=== PATIENT | male | born 1980 | race Caucasian/White ===

== ENCOUNTER → 2016-09-29 | Outpatient (CLI) | payer BC ==
[~2016-09-29] MED LIST: BP MEDS; LOSA100T7 PO; LOSA25TA5 PO; MILN50TA6 PO; PANT40TA PO
== END ==
LOC: CARD 07:44
PROVIDERS: ATTEND Internal Medicine
DX: R07.89 Other chest pain (principal); R06.09 Other forms of dyspnea; I10 Essential (primary) hypertension
CPT/HCPCS: 93017

== ENCOUNTER 2017-11-09 18:48 | Emergency (ER) | payer BC ==
[~2017-11-09] VITALS: Ht 185.4 cm; Wt 108.9 kg
--- OUTSIDE RECORDS SUMMARY | 2017-11-09 18:53 | XMS REPORT | Continuity of Care Document ---
Author Author [facility] Organization [facility] Address Unknown Phone Unavailable Support Name Relationship Address Phone XIOMARA HERNANDEZ Next Of Kin [address] [place] [address] Insurance Providers Payer Name Policy Number Subscriber Name Relationship [facility] [id number] Bryce Hernandez N 01 Self / Same As Patient Advance Directives Directive Response Recorded Date Advance Directives N 04/25/12 3:15pm Problems No Known Problems or Medical conditions. Allergies, Adverse Reactions, Alerts Allergen Type Severity Reaction Last Updated No Known Drug Allergies 10/08/09 Medications Medication Dose Units Route Sig Qty Days Losartan Potassium 25 Mg PO [Bp Meds] Immunizations Name Given Type Date of Pneumonia Vaccine 04/25/08 H Date of Influenza Vaccine 01/24/12 H Response Recorded Date/Time Status not known Unknown Results No Known Relevant Diagnostic Tests, Laboratory Data and/or Discharge Summary. Procedures Procedure Code Date UPPER GI ENDOSCOPY BIOPSY 48387 03/09/08 Encounters Encounter Location Date/Time Departed Emergency Room [facility] 07/02 8:39pm
--- OUTSIDE RECORDS SUMMARY | 2017-11-09 18:53 | XMS REPORT | Continuity of Care Document ---
Author Author [facility] Organization [facility] Address Unknown Phone Unavailable Support Name Relationship Address Phone XIOMARA HERNANDEZ Next Of Kin [address] [place], [place] [id number] Insurance Providers Payer Name Policy Number Subscriber Name Relationship [facility] [id number] Bryce Hernandez 01 Self / Same As Patient Advance Directives Directive Response Recorded Date Advance Directives Y 01/27/13 7:58am Health Care Power of Biodiesel Processing Technician Y 01/27/13 7:58am Organ Donor N 01/27/13 7:58am Problems No Known Problems or Medical conditions. Allergies, Adverse Reactions, Alerts Allergen Type Severity Reaction Last Updated amoxicillin trihydrate Allergy 01/27/13 potassium clavulanate Allergy 01/27/13 Medications Medication Dose Units Route Sig Qty Days Pantoprazole Sodium 40 Mg PO Losartan Potassium 100 Mg PO DAILY Milnacipran Hcl (Savella) 50 Mg PO DAILY Losartan Potassium 25 Mg PO [Bp Meds] Immunizations Name Given Type Date of Pneumonia Vaccine 04/25/08 H Date of Influenza Vaccine 01/26/13 H Response Recorded Date/Time Status not known Unknown Results No Known Relevant Diagnostic Tests, Laboratory Data and/or Discharge Summary. Procedures Procedure Code Date UPPER GI ENDOSCOPY BIOPSY 63508 03/09/08 UPPER GI ENDOSCOPY BIOPSY 12851 01/27/13 Encounters Encounter Location Date/Time Departed Emergency Room [facility] 07/02 8:39pm
--- OUTSIDE RECORDS SUMMARY | 2017-11-09 18:53 | XMS REPORT | Encounter Summary ---
Author Author [facility] Organization [facility] Address Unknown Phone Unavailable Care Team Providers Care Telesales Agent Name Role Phone Geoffrey Beltran MD Unavailable Gab Wilde MD PCP Reason for Referral * Consult, Test & Treat Status Reason Specialty Diagnoses / Referred By Referred To Procedures Contact Contact No Auth Needed Specialty Gastroenterology Diagnoses [facility] Esophagus MD [facility] Required disorder [address] [place] [phone] Phone: Reason for Visit * Reason Comments Chronic Kidney Disease Encounter Details Date Type Department Care Team Description 10/25/2017 Office Visit [facility] Geoffrey Beltran MD Stage 3 chronic kidney Physicians - Internal [address] disease (HCC) (Primary Medicine [address] Dx); [place] [address] Esophagus disorder [address] [phone] [place] [address] Social History Tobacco Use Types Packs/Day Years Used Date Never Smoker Smokeless Tobacco: Never Used Alcohol Use Drinks/Week oz/Week Comments Yes 0 Standard 0.0 drinks or equivalent Sex Assigned at Date Recorded Not on file as of this encounter Last Filed Vital Signs Vital Sign Reading Time Taken Blood Pressure 126/82 10/25/2017 12:40 PM CDT Pulse 98 10/25/2017 12:35 PM CDT Temperature - - Respiratory Rate - - Oxygen Saturation - - Inhaled Oxygen - - Concentration Weight 111.6 kg (246 lb) 10/25/2017 12:35 PM CDT Height 185.4 cm (6' 1") 10/25/2017 12:35 PM CDT Body Mass Index 32.46 10/25/2017 12:35 PM CDT in this encounter Instructions * Patient Instructions - Geoffrey Beltran MD - 10/25/2017 12:45 PM CDT Cut losartan to 50 mg daily. Measure BP at different times during the day. Especially check it at times you feel poorly. in this encounter Plan of Treatment Name Priority Associated Diagnoses Order Schedule BASIC METABOLIC PANEL Routine Stage 3 chronic kidney Every 2 Weeks for 16 disease (HCC) Occurrences starting 10/25/2017 until 10/25/2018 PROTEIN/CR RATIO,UR RAN Routine Stage 3 chronic kidney Every 2 Weeks for 16 disease (HCC) Occurrences starting 10/25/2017 until 10/25/2018 Name Priority Associated Diagnoses Order Schedule AMB REFERRAL TO GASTROENTEROLOGY Routine Esophagus disorder Ordered: 12/2017 as of this encounter Results * PROTEIN/CR RATIO,UR RAN (10/25/2017 3:12 PM) Component Value Ref Range Protein, Random 130 MG/DL Creatinine, Random 191 MG/DL Protein/CR ratio 0.7 Specimen Performing Laboratory [facility] [address] [place] [address] * POC URINE DIPSTICK AUTO READ (10/25/2017) Component Value Ref Range Urine Glucose POC norm Urine Bilirubin POC neg Urine Ketone POC neg Urine Specific [place] 1.010 POC Urine Blood POC neg Urine PH POC 6 Urine Protein POC 100 Urine Urobilinogen POC norm Urine Nitrite POC neg Urine Leukocytes POC neg Color,UA Turbidity,UA Specimen Performing Laboratory Urine IN CLINIC in this encounter Visit Diagnoses Diagnosis Stage 3 chronic kidney disease (HCC) - Primary Esophagus disorder Unspecified disorder of esophagus
--- OUTSIDE RECORDS SUMMARY | 2017-11-09 18:53 | XMS REPORT | Encounter Summary ---
Author Author [facility] Organization [facility] Address Unknown Phone Unavailable Care Team Providers Care Junior Architect Name Role Phone Geoffrey Beltran MD Unavailable Gab Wilde MD PCP Encounter Details Date Type Department Care Team Description 10/08/2017 Orders Only [facility] Jim Cook APRN-BC FSGS (focal segmental Physicians - Internal [address] glomerulosclerosis) Medicine [address] (Primary Dx) [place] [address] [address] [phone] [place] [address] Social History Tobacco Use Types Packs/Day Years Used Date Never Smoker Alcohol Use Drinks/Week oz/Week Comments Yes 0 Standard 0.0 drinks or equivalent Sex Assigned at Date Recorded Not on file as of this encounter Plan of Treatment Name Priority Associated Diagnoses Order Schedule COMPREHENSIVE METABOLIC PANEL Routine FSGS (focal segmental Expected: glomerulosclerosis) (Approximate), Expires: 10/08/2018 PHOSPHORUS Routine FSGS (focal segmental Expected: 10/08/2017 glomerulosclerosis) (Approximate), Expires: 10/08/2018 URIC ACID Routine FSGS (focal segmental Expected: 10/08/2017 glomerulosclerosis) (Approximate), Expires: 10/08/2018 CREATININE-URINE RANDOM Routine FSGS (focal segmental Expected: 2017 glomerulosclerosis) (Approximate), Expires: 10/08/2018 PROTEIN/CR RATIO,UR RAN Routine FSGS (focal segmental Expected: 2017 glomerulosclerosis) (Approximate), Expires: 10/08/2018 TOTAL PROTEIN-URINE RANDOM Routine FSGS (focal segmental Expected: 10/08 glomerulosclerosis) (Approximate), Expires: 10/08/2018 as of this encounter Visit Diagnoses Diagnosis 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
--- OUTSIDE RECORDS SUMMARY | 2017-11-09 18:53 | XMS REPORT | Clinical Summary ---
Author Author [facility] Organization [facility] Address Unknown Phone Unavailable Care Team Providers Care Lead Cargo Mover Name Role Phone Geoffrey Beltran MD Unavailable Gab Wilde MD PCP Source Comments Some departments are not documenting in the electronic medical record. If you do not see the information that you expected, contact Release of Information in the Health Information Management department at [phone] for further assistance in locating additional records.[facility] Allergies Active Allergy Reactions Severity Noted Date Comments Amoxicillin-Pot NAUSEA AND VOMITING 05/15/2013 Clavulanate Current Medications Prescription Sig. Disp. Refills Start End Date Status Date acetaminophen (TYLENOL) Take 500 mg by mouth as Active 500 mg tablet Needed for Pain. losartan (COZAAR) 50 mg Take 1 tablet by mouth 90 tablet 4 06/04/19 Active tablet daily. 18 losartan (COZAAR) 25 mg Take 1 tablet by mouth 30 tablet 1 10/09/19 Active tablet daily. [address] Take 40 mg by mouth 10/26/19 Discontin (PROTONIX) 40 mg tablet daily. 18 ued mirabegron(+) ER Take 1 tablet by mouth 30 tablet 2 02/12/20 Discontin (MYRBETRIQ) 25 mg tablet daily. 17 18 ued Active Problems Problem Noted Date Urgency of urination 07/07/2016 Overview: 07/07/16: One year history of urinary urgency, frequency, nocturia 1-5x/night. 02/11/17: uroxatral no help. Still having same symptoms L ast Assessment & Plan: Mr. Hernandez is a 36 year old gentleman with urinary urgency, frequency, and rare urge urinary incontinence here for follow up. Unfortunately he saw no benefit from uroxatral and is still having bothersome symptoms. Plan: - We had a long discussion with him and it does not seem like he is drinking an inappropriate amount of fluids although he was counseled that he can slightly decrease the amount of pricilla aid he drinks (one full pitcher) each night. - We will discontinue uroxatral and start mirabegron 25 mg daily - The patient was counseled to check his blood pressure to make sure he does not get hypertensive with mirabegron - Mr. Hernandez will keep a voiding diary and follow up with us in 1 month - If his symptoms have not improved, we will consider cystoscopy and a potassium stimulation test. Encounters Date Type Specialty Care Team Description 10/25/2017 Hospital Lab Geoffrey Beltran MD Chronic kidney disease, Encounter stage 3 (moderate) (HCC) 10/25/2017 Office Visit Nephrology Geoffrey Beltran MD Stage 3 chronic kidney disease (HCC) (Primary Dx); Esophagus disorder 10/08/2017 Orders Only Nephrology Jim Cook APRN-NATANAEL FSGS ( focal segmental glomerulosclerosis) (Primary Dx) from Last 3 Months Family History Medical History Relation Name Comments Brain Tumor Other Heart Disease Other Relation Name Status Comments Other Social History Tobacco Use Types Packs/Day Years Used Date Never Smoker Smokeless Tobacco: Never Used Alcohol Use Drinks/Week oz/Week Comments Yes 0 Standard 0.0 drinks or equivalent Sex Assigned at Date Recorded Not on file Last Filed Vital Signs Vital Sign Reading Time Taken Blood Pressure 126/82 10/25/2017 12:40 PM CDT Pulse 98 10/25/2017 12:35 PM CDT Temperature 36.4 C (97.6 F) 10/05/2016 2:16 PM CDT Respiratory Rate 18 10/02/2013 2:08 PM CDT Oxygen Saturation - - Inhaled Oxygen - - Concentration Weight 111.6 kg (246 lb) 10/25/2017 12:35 PM CDT Height 185.4 cm (6' 1") 10/25/2017 12:35 PM CDT Body Mass Index 32.46 10/25/2017 12:35 PM CDT Plan of Treatment Health Maintenance Due Date Last Done Comments PHYSICAL (COMPREHENSIVE) 1985 EXAM PERTUSSIS VACCINE 1989 HIV SCREENING 1993 TETANUS VACCINE 1995 INFLUENZA VACCINE 01/17/2018 01/27/2001 Results * PROTEIN/CR RATIO,UR RAN (10/25/2017 3:12 PM) Component Value Ref Range Protein, Random 130 MG/DL Creatinine, Random 191 MG/DL Protein/CR ratio 0.7 Specimen Performing Laboratory U[facility] [address] [place] [address] * POC URINE DIPSTICK AUTO READ (10/25/2017) Component Value Ref Range Urine Glucose POC norm Urine Bilirubin POC neg Urine Ketone POC neg Urine Specific [place] 1.010 POC Urine Blood POC neg Urine PH POC 6 Urine Protein POC 100 Urine Urobilinogen POC norm Urine Nitrite POC neg Urine Leukocytes POC neg Color,UA Turbidity,UA Specimen Performing Laboratory Urine IN CLINIC from Last 3 Months
--- OUTSIDE RECORDS SUMMARY | 2017-11-09 18:53 | XMS REPORT | Encounter Summary ---
Author Author [facility] Organization [facility] Address Unknown Phone Unavailable Care Team Providers Care Camera Machinist Name Role Phone Geoffrey Beltran MD Unavailable Gab Wilde MD PCP Encounter Details Date Type Department Care Team Description 10/25/2017 [facility] Geoffrey Beltran MD Chronic kidney disease, Encounter [facility] [address]st fl [address] stage 3 (moderate) ( HCC) [address] [place] [address] [place], [place] [id number] Social History Tobacco Use Types Packs/Day Years Used Date Never Smoker Smokeless Tobacco: Never Used Alcohol Use Drinks/Week oz/Week Comments Yes 0 Standard 0.0 drinks or equivalent Sex Assigned at Date Recorded Not on file as of this encounter Medications at Time of Discharge Medication Sig. Disp. Refills Start Date End Date acetaminophen (TYLENOL) Take 500 mg by mouth as 500 mg tablet Needed for Pain. losartan (COZAAR) 25 mg Take 1 tablet by mouth 30 tablet 1 10/08/2017 tablet daily. losartan (COZAAR) 50 mg Take 1 tablet by mouth 90 tablet 4 06/04/2017 tablet daily. as of this encounter Plan of Treatment Not on fileas of this encounter Results * PROTEIN/CR RATIO,UR RAN (10/25/2017 3:12 PM) Component Value Ref Range Protein, Random 130 MG/DL Creatinine, Random 191 MG/DL Protein/CR ratio 0.7 Specimen Performing Laboratory Urine [facility] [address] [place] [address] in this encounter Visit Diagnoses Diagnosis Stage 3 chronic kidney disease (HCC) Admitting Diagnoses Diagnosis Chronic kidney disease, stage 3 (moderate) (HCC) Chronic kidney disease, stage 3 (moderate)
[2017-11-09] MEDS ORDERED: GLUCAGON EMERGENCY 1 MG/KIT IV ONE (19:00)
--- NOTE | 2017-11-09 19:06 | ED Abdominal Pain ---
General Stated Complaint: FOOD STUCK IN THROAT Source of Information: Patient, Family Exam Limitations: No Limitations History of Present Illness Date Seen by Provider: Nov 09, 2017 Time Seen by Provider: 19:02 Initial Comments Patient is a 37-year-old male who presents to the emergency room with complaints of having a piece of sausage stuck in his throat. He reports that 45 minutes prior to arrival or eating dinner when the food became stuck, he's had this happen to him twice before, once he had to go to endo and the other time glucagon was able to let it go down He denies pain, nausea, vomiting. He does report that he is unable to swallow his saliva. Timing/Duration: 1 Hour Severity/Quality: Mild Associated Symptoms: Denies Symptoms Allergies and Home Medications Allergies Coded Allergies: amoxicillin trihydrate (Unverified Allergy, 01/27/13) potassium clavulanate (Unverified Allergy, 01/27/13) Home Medications Famotidine 20 Mg Tablet, 20 MG PO BID, (Reported) Losartan Potassium 100 Mg Tablet, 100 MG PO DAILY, (Reported) Milnacipran Hcl 50 Mg Tablet, 50 MG PO DAILY, (Reported) Patient Home Medication List Home Medication List Reviewed: Yes Review of Systems Constitutional: see HPI; No chills, No diaphoresis EENTM: No Mouth Pain, No Mouth Swelling, No Throat Pain, No Throat Swelling; Other (food bolus stuck in throat.) Respiratory: See HPI; Denies Shortness of Air, Denies SOA With Exertion, Denies Wheezing All Other Systems Reviewed Negative Unless Noted: Yes Past Tjmxxwa-Aqlwcu-Xwzlnd Hx Past Med/Social Hx: Reviewed Nursing Past Med/Soc Hx Patient Social History Recent Foreign Travel: No Contact w/Someone Who Travel: No Immunizations Up To Date Date of Pneumonia Vaccine: Apr 25, 2008 Date of Influenza Vaccine: Jan 26, 2013 Family Medical History Reviewed Nursing Family Hx Physical Exam Vital Signs Vital Signs - First Documented 11/09/17 18:55 Temp 99.0 Pulse 100 Resp 20 B/P (MAP) 147/91 (109) Pulse Ox 99 O2 Delivery Room Air Capillary Refill : Height/Weight/BMI Height: '" Weight: 230lbs. oz. kg; BMI Method: General Appearance: WD/WN, no apparent distress HEENT: PERRL/EOMI, normal ENT inspection, TMs normal, pharynx normal; No pharyngeal erythema, No tonsillar exudate; other (he is unable to swallow saliva. No obvious abnormalities on exam of mouth and throat.) Neck: non-tender, full range of motion, supple, normal inspection Respiratory: chest non-tender, lungs clear, normal breath sounds, no respiratory distress, no accessory muscle use Cardiovascular: regular rate, rhythm, no edema, no gallop, no JVD, no murmur Progress/Results/Core Measures Results/Orders Lab Results Laboratory Tests Test 11/09/17 19:07 Range/Units White Blood Count 7.9 4.3-11.0 10^3/uL Red Blood Count 4.25 L 4.35-5.85 10^6/uL Hemoglobin 13.6 13.3-17.7 G/DL Hematocrit 37 L 40-54 % Mean Corpuscular Volume 87 80-99 FL Mean Corpuscular Hemoglobin 32 25-34 PG Mean Corpuscular Hemoglobin Concent 37 H 32-36 G/DL Red Cell Distribution Width 13.4 10.0-14.5 % Platelet Count 309 130-400 10^3/uL Mean Platelet Volume 9.9 7.4-10.4 FL Neutrophils (%) (Auto) 45 42-75 % Lymphocytes (%) (Auto) 34 12-44 % Monocytes (%) (Auto) 11 0-12 % Eosinophils (%) (Auto) 10 0-10 % Basophils (%) (Auto) 1 0-10 % Neutrophils # (Auto) 3.5 1.8-7.8 X 10^3 Lymphocytes # (Auto) 2.7 1.0-4.0 X 10^3 Monocytes # (Auto) 0.9 0.0-1.0 X 10^3 Eosinophils # (Auto) 0.8 H 0.0-0.3 10^3/uL Basophils # (Auto) 0.0 0.0-0.1 10^3/uL Sodium Level 143 135-145 MMOL/L Potassium Level 4.0 3.6-5.0 MMOL/L Chloride Level 105 98-107 MMOL/L Carbon Dioxide Level 25 21-32 MMOL/L Anion Gap 13 5-14 MMOL/L Blood Urea Nitrogen 20 H 7-18 MG/DL Creatinine 1.84 H 0.60-1.30 MG/DL Estimat Glomerular Filtration Rate 41 BUN/Creatinine Ratio 11 Glucose Level 98 70-105 MG/DL Calcium Level 9.7 8.5-10.1 MG/DL Total Bilirubin 0.4 0.1-1.0 MG/DL Aspartate Amino Transf (AST/SGOT) 16 5-34 U/L Alanine Aminotransferase (ALT/SGPT) 25 0-55 U/L Alkaline Phosphatase 61 40-136 U/L Total Protein 8.3 H 6.4-8.2 GM/DL Albumin 4.5 3.2-4.5 GM/DL My Orders Orders - BRITTANY MORALES Comprehensive Metabolic Panel (11/09/17 19:00) Saline Lock/Iv-Start (11/09/17 19:00) Cbc With Automated Diff (11/09/17 19:00) Glucagon Emergency Kit (Glucagon Emergen (11/09/17 19:00) Ondansetron Injection (Zofran Injectio (11/09/17 19:30) Medications Given in ED Vital Signs/I&O 11/09/17 11/09/17 18:55 20:20 Temp 99.0 99.0 Pulse 100 82 Resp 20 20 B/P (MAP) 147/91 (109) 128/66 Pulse Ox 99 99 O2 Delivery Room Air Room Air Progress Progress Note : Progress Note I have seen and evaluated the patient. About 20 minutes after the administration of glucagon the patient felt like the food had moved. He was able to drink clear liquids without any difficulty swallowing his saliva at this time. I informed the patient that we watch him for a bit longer to make sure symptoms did not return. He agrees with plans of discharge and close follow -up with Dr. Ny. Return precautions were given. Departure Impression Primary Impression: Obstruction of esophagus due to food impaction Disposition: 01 HOME, SELF-CARE Condition: Stable/Unchanged Departure-Patient Inst. Decision time for Depature: 20:08 Referrals: REJI MCDUFFIE MD (PCP/Family) Primary Care Physician KATY NY DO Patient Instructions: Food Obstruction Add. Discharge Instructions: Follow-up with Dr. Ny within 1 week for recheck. Call first thing tomorrow morning for an appointment time. Return back to the emergency room for any worsening symptoms or any concerns as needed. BRITTANY MORALES Nov 09, 2017 19:06
[2017-11-09 19:15] LABS: BASOPHILS % (AUTO) 1 % (0-10); EOSINOPHILS # (AUTO) 0.8 10^3/uL (0.0-0.3); EOSINOPHILS % (AUTO) 10 % (0-10); HEMATOCRIT 37 % (40-54); HEMOGLOBIN 13.6 G/DL (13.3-17.7); LYMPHOCYTES # (AUTO) 2.7 X 10^3 (1.0-4.0); LYMPHOCYTES % (AUTO) 34 % (12-44); MEAN CORPUSCULAR HEMOGLOBIN 32 PG (25-34); MEAN CORPUSCULAR HGB CONC 37 G/DL (32-36); MEAN CORPUSCULAR VOLUME 87 FL (80-99); MEAN PLATELET VOLUME 9.9 FL (7.4-10.4); MONOCYTES # (AUTO) 0.9 X 10^3 (0.0-1.0); MONOCYTES % (AUTO) 11 % (0-12); NEUTROPHILS # (AUTO) 3.5 X 10^3 (1.8-7.8); NEUTROPHILS % (AUTO) 45 % (42-75); PLATELET COUNT 309 10^3/uL (130-400); RED BLOOD COUNT 4.25 10^6/uL (4.35-5.85); RED CELL DISTRIBUTION WIDTH 13.4 % (10.0-14.5); WHITE BLOOD COUNT 7.9 10^3/uL (4.3-11.0)
[2017-11-09] MEDS ORDERED: ONDANSETRON 4 MG/2 ML (SDV) Z0FRAN IVP ONE (19:30)
[2017-11-09 19:33] LABS: ALBUMIN 4.5 GM/DL (3.2-4.5); BILIRUBIN,TOTAL 0.4 MG/DL (0.1-1.0); CALCIUM 9.7 MG/DL (8.5-10.1); CREATININE SERUM 1.84 MG/DL (0.60-1.30); TOTAL PROTEIN 8.3 GM/DL (6.4-8.2)
[2017-11-09] MEDS ORDERED: FAMO-119 PO (19:44)
[2017-11-09 20:20] VITALS: BP 128/66
== END 2017-11-09 20:20 | disposition home or self-care (01) ==
LOC: EDUNIT# 18:48 → ER 18:49
DX: T18.128A Food in esophagus causing other injury, initial encounter (principal); K22.2 Esophageal obstruction; Z88.1 Allergy status to other antibiotic agents
CPT/HCPCS: 36415; 80053; 85025; 96374; 96375

== ENCOUNTER → 2020-06-28 | Outpatient (CLI) | payer BC ==
[~2020-06-28] MED LIST changes: +FAMO-119 PO
== END ==
LOC: CARD 14:40
PROVIDERS: ATTEND Nurse Practitioner Family
DX: Z12.6 Encounter for screening for malignant neoplasm of bladder (principal); I08.0 Rheumatic disorders of both mitral and aortic valves; Z82.49 Family history of ischemic heart disease and other diseases of the circulatory system
CPT/HCPCS: 93005; 93306

== ENCOUNTER → 2021-11-10 | Outpatient (CLI) | payer BC | LOC: CARD 13:30 | PROVIDERS: ATTEND Internal Medicine | DX: R00.2 Palpitations (principal) | CPT/HCPCS: 93225; 93226 ==

== ENCOUNTER 2021-11-23 14:45 | Emergency (ER) | payer BC ==
[~2021-11-23] VITALS: Ht 185 cm; Wt 118.0 kg
--- NOTE | 2021-11-23 15:02 | ED General ---
General Chief Complaint: Foreign Body Stated Complaint: FOOD BOLUS Source of Information: Patient Exam Limitations: No Limitations History of Present Illness Date Seen by Provider: Nov 23, 2021 Time Seen by Provider: 14:50 Initial Comments Patient is a 41-year-old male with a chief complaint of a piece of steak stuck in his esophagus. He tells me that he was in [place] last night and felt to get stuck. He went to urgent care in [facility] and they gave him glucagon without any relief. He opted not to stay and receive treatment in [facility] and come home. He has a history of esophageal foreign body, scoped in 2019. Diagnosis eosinophilic esophagitis. He is not on any acid reducers. Allergic to Augmentin. Non-smoker, nondrinker no illicit drugs. No prior abdominal surgeries. He states he has not been able to hold anything down including water since last night. He tried soda, warm water and multiple other home remedies to try and alleviate the symptoms to no avail. He points to the source of his discomfort at approximately the sternal notch. He is a little nauseated. All other review of systems reviewed and negative except as stated Timing/Duration: 12-24 Hours Severity: Moderate Associated Systoms: Nausea/Vomiting Allergies and Home Medications Allergies Coded Allergies: amoxicillin trihydrate (Unverified Allergy, Unknown, 06/28/20) potassium clavulanate (Unverified Allergy, Unknown, 06/28/20) Patient Home Medication List Home Medication List Reviewed: Yes Famotidine (Pepcid) 20 Mg Tablet, 20 MG PO BID, (Reported) Entered as Reported by: ERVIN MAN on 11/09/171943 Losartan Potassium (Losartan Potassium) 100 Mg Tablet, 100 MG PO DAILY, (Reported) Entered as Reported by: DORINDA SCOTT on 01/26/131553 Milnacipran Hcl (Savella) 50 Mg Tablet, 50 MG PO DAILY, (Reported) Entered as Reported by: DORINDA SCOTT on 01/26/131553 Review of Systems Review of Systems Constitutional: see HPI EENTM: no symptoms reported Respiratory: no symptoms reported Cardiovascular: chest pain Gastrointestinal: nausea, vomiting Genitourinary: no symptoms reported Musculoskeletal: no symptoms reported Skin: no symptoms reported Psychiatric/Neurological: No Symptoms Reported All Other Systems Reviewed Negative Unless Noted: Yes Past Cclvzjm-Oirudy-Qvhpnu Hx Seasonal Allergies Seasonal Allergies: Yes Past Medical History Surgeries: Yes (EGD, L FOOT FX) Respiratory: No Cardiac: No Neurological: No Genitourinary: Yes (Pt is Stage 3 Kidney Dz with nephrology care) Renal Failure Gastrointestinal: No (Esophageal issues with food bolus hx refer to GI at [facility]) Musculoskeletal: No Endocrine: No HEENT: No Cancer: No Psychosocial: No Integumentary: No Blood Disorders: No Physical Exam Vital Signs Vital Signs - First Documented 11/23/21 14:51 Temp 37.0 Pulse 93 Resp 20 B/P (MAP) 155/98 (117) Pulse Ox 97 O2 Delivery Room Air Capillary Refill : Height, Weight, BMI Height: 6'1.00" Weight: 240lbs. oz. 108.417341mn; BMI Method:Stated General Appearance: WD/WN, Anxious Eyes: Bilateral Eye Normal Inspection, Bilateral Eye PERRL, Bilateral Eye EOMI HEENT: PERRL/EOMI Neck: Normal Inspection Respiratory: Lungs Clear, Normal Breath Sounds, No Accessory Muscle Use, No Respiratory Distress Cardiovascular: Regular Rate, Rhythm Gastrointestinal: Normal Bowel Sounds, Non Tender, Soft Extremity: Normal Inspection, Normal Range of Motion Neurologic/Psychiatric: Alert, Oriented x3, No Motor/Sensory Deficits, Normal Mood/Affect, chemist intern II-XII Norm as Tested Skin: Normal Color, Warm/Dry Progress/Results/Core Measures Suspected Sepsis SIRS Temperature: Pulse: Respiratory Rate: Blood Pressure / Mean: Results/Orders My Orders Orders - CHAO ALDRIDGE MD Ed Iv/Invasive Line Start (11/23/21 15:17) Pantoprazole Injection (Protonix Injecti (11/23/21 15:30) Ns Iv 1000 Ml (Sodium Chloride 0.9%) (11/23/21 15:30) Fentanyl Inj (Sublimaze Injection) (11/23/21 15:30) Glucagon Emergency Kit (Glucagon Emergen (11/23/21 15:30) Medications Given in ED Current Medications Medications Dose Ordered Sig/Sofie Route Start Time Stop Time Status Last Admin Dose Admin Fentanyl Citrate 50 mcg ONCE ONCE IVP 11/23/21 15:30 11/23/21 15:31 DC 11/23/21 15:39 50 MCG Glucagon 1 mg ONCE ONCE IV 11/23/21 15:30 11/23/21 15:31 DC 11/23/21 15:40 1 MG Pantoprazole 40 mg ONCE ONCE IV 11/23/21 15:30 11/23/21 15:31 DC 11/23/21 15:39 40 MG Vital Signs/I&O 11/23/21 11/23/21 14:51 15:39 Temp 37.0 37.0 Pulse 93 Resp 20 B/P (MAP) 155/98 (117) Pulse Ox 97 O2 Delivery Room Air Capillary Refill : Progress Note #1: Time: 15:03 Progress Note DIscussed with Dr Urias. recc admit obs IVF, fent (50mcg q1h) /phenergan (12.5mg IV Q3h) /protonix (40mg IV BID)/IVF; will scope at noon tomorrow Progress Note #2: Time: 15:25 Progress Note Patient was very upset with having to wait until tomorrow to have the scope done. He is considering leaving and going to another facility. I offered to try another round of glucagon and some pain medications while he consideres his options. Progress Note #3: Time: 16:22 Progress Note Gave patient a trial of Glucagon again. Waited about 20 minutes and had him drink. He felt relief from the food bolus - it passed on down. He has complete relief. Departure Impression Primary Impression: Foreign body in esophagus Qualified Codes: T18.108A - Unspecified foreign body in esophagus causing other injury, initial encounter Disposition: ADMITTED INPATIENT Condition: Improved Departure-Patient Inst. Decision time for Depature: 16:24 Referrals: REJI WILDE MD (PCP/Family) Primary Care Physician Patient Instructions: Foreign Body, Swallowed, Adult Add. Discharge Instructions: You should be on an acid sueding machine operator daily such as qqhs-dha-kvyuhuo Prilosec or Protonix with your history of esophagitis. Please follow-up with Dr. Wilde, he can do preventative scopes to see if you need further dilation. Return to the emergency department for any new, concerning or emergent complaints. CHAO ALDRIDGE MD Nov 23, 2021 15:02
[2021-11-23] MEDS ORDERED: NS IV 1000 ML 1,000 ML IV SCH (15:30)
[2021-11-23] MEDS ORDERED: fentaNYL INJ 100 MCG/2 ML AMP IVP ONE (15:30)
[2021-11-23] MEDS ORDERED: PANTOPRAZOLE 40 MG (PROTONIX) VIAL IV ONE (15:30)
[2021-11-23] MEDS ORDERED: GLUCAGON EMERGENCY 1 MG/KIT IV ONE (15:30)
[2021-11-23 16:25] VITALS: BP 145/95
== END 2021-11-23 16:25 | disposition home or self-care (01) ==
LOC: EDUNIT# 14:45 → ER 14:46
DX: T18.128A Food in esophagus causing other injury, initial encounter (principal); W45.8XXA Other foreign body or object entering through skin, initial encounter

== ENCOUNTER 2021-12-10 05:47 | Outpatient (CLI) | payer BC ==
[~2021-12-10] VITALS: Ht 185.4 cm; Wt 118.4 kg
[2021-12-10] MEDS ORDERED: LOSA50TA63 PO (09:23)
[2021-12-10] MEDS ORDERED: TOPI25TA10 PO (09:23)
[2021-12-10] MEDS ORDERED: DESV50TA18 PO (09:23)
[2021-12-10] MEDS ORDERED: MONT-40 PO (09:23)
[2021-12-10] MEDS ORDERED: BUPR300T98 PO (09:23)
== END 2021-12-10 09:31 ==
LOC: PREOP 05:47
PROVIDERS: ATTEND Internal Medicine
DX: Z01.818 Encounter for other preprocedural examination (principal); R13.10 Dysphagia, unspecified

== ENCOUNTER 2021-12-12 07:38 | Day surgery (SDC) | payer BC ==
--- NOTE | 2021-12-10 10:05 | HISTORY AND PHYSICAL ---
DATE OF SERVICE: EGD HISTORY AND PHYSICAL HISTORY OF PRESENT ILLNESS: The patient is a 41-year-old white male, who was in [place] eating steak, there was obstruction. He ended up leaving the next day still unable to get food or fluid down. He came to the emergency room on the , where he was given glucagon, some fluids and ultimately was able to alleviate the obstruction. He has a history of intermittent dysphagia with past EGD and biopsies consistent with eosinophilic esophagitis. This condition was diagnosed a number of years ago, he did well on a gluten-free diet, initially, did not feel that gluten was an issue, although he is still adhered to very low gluten related diet. It has been a number of years since his last EGD. He has had no melena or bright red blood per rectum and believes his weight to be stable. PHYSICAL EXAMINATION: GENERAL: Reveals a white male, appeared to be in no acute distress. VITAL SIGNS: Blood pressure is 120/90. CHEST: Clear. CARDIOVASCULAR: Reveals a regular rate and rhythm without murmur, S3 or S4. ABDOMEN: Soft, supple without mass, organomegaly or tenderness. EXTREMITIES: Reveal no cyanosis, clubbing or edema. ASSESSMENT AND PLAN: 1. Dysphagia with history of eosinophilic esophagitis and it has been sometime since his last EGD. He reports that he did not feel that lactose or dairy products were contributing in any way. I did advise that he still attempt to maintain a gluten-free diet. We will initiate pantoprazole and the patient is being set up for an EGD. 2. Dipstick suggesting the possibility of microscopic hematuria on a UA without microscopy that was done at for followup of his hypertension with stage III chronic renal disease. The patient is advised to bring in a urine specimen, his dipsticks were notoriously inaccurate, to see whether or not he truly had microscopic hematuria. Job ID: [id number] DocumentID: [id number] Dictated Date: 12/08/2021 17:18:37 Drama Critic Date: 12/08/2021 17:36:16 Dictated By: REJI MCDUFFIE MD
[~2021-12-12] VITALS: Ht 172 cm; Wt 118.0 kg
[~2021-12-12 07:38] MED LIST changes: +BUPR300T98 PO; +DESV50TA18 PO; +LOSA50TA63 PO; +MONT-40 PO; +TOPI25TA10 PO
[2021-12-12] MEDS ORDERED: LACTATED RINGERS 1,000 ML IV STA (07:41)
[2021-12-12 07:45] VITALS: BP 137/86
[2021-12-12] MEDS ORDERED: HURRICAINE EXT TUBE (BENZOCAINE) XX PRN (07:45)
--- NOTE | 2021-12-12 07:47 | Pre-Op Note & Conscious Sedat ---
Pre-Operative Progress Note Date H&P Reviewed: Dec 12, 2021 Time H&P Reviewed: 07:47 Pre-Op Diagnosis: dysphagia Conscious Sedation Pre-Proced ASA Score 2 For ASA 3 and 4: Consider anesthesia and medical clearance. Also, for patients with a history of failed moderate sedation consider anesthesia. Airway Lungs Heart ASA score ASA 1: a normal healthy patient ASA 2: a patient with a mild systemic disease (mid diabetes, controlled hypertension, obesity ASA 3: a patient with a severe systemic disease that limits activity (angina, COPD, prior Myocardial infarction) ASA 4: a patient with an incapacitating disease that is a constant threat to life (CHF, renal failure) ASA 5: a moribund patient not expected to survive 24 hrs. (ruptured aneurysm) ASA 6: a declared brain- patient whose organs are being harvested. For emergent operations, add the letter E after the classification Mallampati Classification Grade 2 Sedation Plan Analgesia, Amnesia, Plan communicated to team members, Discussed options with patient/fam, Discussed risks with patient/fam The patient is an appropriate candidate to undergo the planned procedure, sedation, and anesthesia. The patient immediately re-assessed prior to indication. REJI MCDUFFIE MD Dec 12, 2021 07:47
[2021-12-12] MEDS ORDERED: proPOfol 200 MG/20 ML (DIPRIVAN) VIAL IV ONE (07:55)
[2021-12-12] MEDS ORDERED: MIDAZOLAM 2 MG/2 ML (VERSED) VIAL ONE (07:55)
[2021-12-12 08:35] VITALS: BP 106/59
[2021-12-12 08:40] VITALS: BP 113/56
--- NOTE | 2021-12-12 08:40 | Progress Note-Post Operative ---
Post-Procedure Note Physician (s)/Instructional Resource Teacher (s) Physician REJI MCDUFFIE MD Pre-Procedure Diagnosis Pre-Procedure Diagnosis: dysphagia Post-Procedure Diagnosis Post-operative diagnosis: LA grade A erosive esophagitis with some esophageal furrowing suggesting eosinophilic esophagitis no strictures REIJ MCDUFFIE MD Dec 12, 2021 08:40
[2021-12-12 09:10] VITALS: BP 121/66
--- NOTE | 2021-12-12 10:32 | OPERATIVE REPORT ---
DATE OF SERVICE: EGD SUMMARY INDICATION FOR THE PROCEDURE: EGD was performed for evaluation of dysphagia with a history of past eosinophilic esophagitis. DESCRIPTION OF PROCEDURE: The patient was placed in the left lateral decubitus position. The endoscope was inserted in the oral cavity and under direct visualization, the esophagus was intubated. The endoscope was passed down the esophagus through the stomach and the second portion of the duodenum. A careful inspection was made as the endoscope was withdrawn. The patient tolerated the procedure well. FINDINGS: The posterior pharynx, true and false vocal folds, epiglottis, and arytenoid aperture were unremarkable to visual inspection. Beginning in the mid esophagus, there was some subtle furrowing without ulceration. Biopsies from the upper and mid esophagus were obtained for evaluation for eosinophilic esophagitis. Findings compatible with LA grade A erosive esophagitis were noted without evidence for stricture formation or extrinsic compression and no evidence to suggest Maldonado's change, rings or webs. Two biopsies were obtained from at or below the Z-line. The cardia, fundus, antrum, pylorus, pyloric channel, duodenal bulb and second portion of the duodenum were unremarkable on visual inspection. ASSESSMENT: Findings suspicious for eosinophilic esophagitis were noted with evidence for LA grade A erosive esophagitis. Biopsies were obtained. We will again be advocating careful attention to trying to adhere to a gluten-free diet and will be initiating pantoprazole 40 mg daily. The patient has failed multiple attempts at weight loss with a BMI greater than 40. We will be having him return to the office to see if we cannot get him approved for [facility] after discussion. I also discussed the importance of careful attention to mastication. Job ID: [id number] DocumentID: [id number] Dictated Date: 12/12/2021 08:44:31 House Player Date: 12/12/2021 10:30:48 Dictated By: REJI MCDUFFIE MD
--- NOTE | 2021-12-12 12:29 | Anesthesia-General Post-Op ---
MAC Patient Condition Mental Status/LOC: Same as Preop Cardiovascular: Satisfactory Nausea/Vomiting: Absent Respiratory: Satisfactory Pain: Controlled Complications: Absent Post Op Complications Complications None Follow Up Care/Instructions Patient Instructions None needed. Anesthesiology Discharge Order Discharge Order Patient is doing well, no complaints, stable vital signs, no apparent adverse anesthesia problems. No complications reported per nursing. JEIMY MONSON CRNA Dec 12, 2021 12:28
== END 2021-12-12 09:41 | disposition home or self-care (01) ==
LOC: ENDO 07:38
PROVIDERS: ATTEND Internal Medicine
DX: K20.80 Other esophagitis without bleeding (principal); E66.9 Obesity, unspecified; Z68.39 Body mass index [BMI] 39.0-39.9, adult

== ENCOUNTER → 2021-12-24 | Outpatient (CLI) | payer BC | LOC: CARD 14:15 | PROVIDERS: ATTEND Nurse Practitioner Family | DX: R00.0 Tachycardia, unspecified (principal) | CPT/HCPCS: 93005 ==

== ENCOUNTER 2022-12-16 05:41 | Outpatient (CLI) | payer BC ==
[~2022-12-16] VITALS: Ht 185.4 cm; Wt 108.9 kg
[2022-12-24] MEDS ORDERED: DUPI200S SQ (08:50)
== END 2022-12-24 09:11 | disposition home or self-care (01) ==
LOC: PREOP 05:41
PROVIDERS: ATTEND Internal Medicine
DX: Z01.818 Encounter for other preprocedural examination (principal)

== ENCOUNTER 2022-12-25 10:31 | Day surgery (SDC) | payer BC ==
[~2022-12-25] VITALS: Ht 185.4 cm; Wt 108.9 kg
[~2022-12-25 10:31] MED LIST changes: +DUPI200S SQ
[2022-12-25] MEDS ORDERED: LACTATED RINGERS 1,000 ML 1,000 ML IV STA (10:53)
[2022-12-25] MEDS ORDERED: HURRICAINE EXT TUBE (BENZOCAINE) XX PRN (11:00)
[2022-12-25 11:25] VITALS: BP 126/86
--- NOTE | 2022-12-25 11:33 | Pre-Op Note & Conscious Sedat ---
Pre-Operative Progress Note Date H&P Reviewed: Dec 25, 2022 Time H&P Reviewed: 11:33 History & Physical: H&P Reviewed, Patient Examed, No changes noted Pre-Op Diagnosis: dysphagia Moderate Sedation PreProcedure ASA Score 2 Airway Lungs Heart ASA score ASA 1: a normal healthy patient ASA 2: a patient with a mild systemic disease (mid diabetes, controlled hypertension, obesity ASA 3: a patient with a severe systemic disease that limits activity (angina, COPD, prior Myocardial infarction) ASA 4: a patient with an incapacitating disease that is a constant threat to life (CHF, renal failure) ASA 5: a moribund patient not expected to survive 24 hrs. (ruptured aneurysm) ASA 6: a declared brain- patient whose organs are being harvested. For emergent operations, add the letter E after the classification Mallampati Classification Grade 2 Sedation Plan Analgesia, Amnesia, Plan communicated to team members, Discussed options with patient/fam, Discussed risks with patient/fam The patient is an appropriate candidate to undergo the planned procedure, sedation, and anesthesia. The patient immediately re-assessed prior to indication. REJI MCDUFFIE MD Dec 25, 2022 11:33
--- NOTE | 2022-12-25 12:11 | Anesthesia-General Post-Op ---
MAC Patient Condition Mental Status/LOC: Same as Preop Cardiovascular: Satisfactory Nausea/Vomiting: Absent Respiratory: Satisfactory Pain: Controlled Complications: Absent Post Op Complications Complications None Follow Up Care/Instructions Patient Instructions None needed. Anesthesiology Discharge Order Discharge Order Patient is doing well, no complaints, stable vital signs, no apparent adverse anesthesia problems. No complications reported per nursing. SOLE EMANUEL CRNA Dec 25, 2022 12:11
[2022-12-25 12:15] VITALS: BP 96/51
[2022-12-25 12:20] VITALS: BP 101/52
--- NOTE | 2022-12-25 12:20 | Progress Note-Post Operative ---
Post-Procedure Note Physician (s)/Coil Former (s) Physician REJI MCDUFFIE MD Pre-Procedure Diagnosis Pre-Procedure Diagnosis: dysphagia Post-Procedure Diagnosis Post-operative diagnosis: The patient was placed in the left lateral decubitus position. The endoscope was inserted into the oral cavity and under direct visualization the esophagus intubated. The endoscope was passed down the esophagus to stomach and second portion of the duodenum. A careful inspection was made as the endoscope was withdrawn. Findings: Posterior pharynx epiglottis arytenoid aperture and true and false vocal folds were unremarkable to gross inspection. The proximal, mid and distal esophagus was unremarkable. Minimal amount of erythema was noted at the Z-line with no evidence for erosive esophagitis or Maldonado's change. There is no evidence for esophageal for rowing. No evidence for intrinsic or extrinsic obstruction was noted. The cardia, fundus, antrum, pylorus, pyloric channel, duodenal bulb and second portion of the duodenum were unremarkable to visual inspection with normal villous architectural appearance of the duodenum. Biopsies were obtained for evaluation for eosinophilic esophagitis from the GE junction mid and proximal esophagus. A/P 1. Essentially unremarkable upper endoscopy with no evidence for erosive esophagitis Maldonado's change or obstruction. Biopsies were obtained for evaluation for eosinophilic esophagitis. REJI MCDUFFIE MD Dec 25, 2022 12:20
[2022-12-25 12:40] VITALS: BP 101/52
== END 2022-12-25 12:40 | disposition home or self-care (01) ==
LOC: ENDO 10:31
PROVIDERS: ATTEND Internal Medicine
DX: R13.10 Dysphagia, unspecified (principal); K22.89 Other specified disease of esophagus